=== PATIENT | female | born 1970 | race Caucasian/White ===

== ENCOUNTER → 2019-04-02 15:12 | Outpatient (CLI) | payer OTHER, SELFPAY ==
--- NOTE | 2019-04-02 15:14 | DI.MG.S_ITS ---
BILATERAL DIGITAL SCREENING MAMMOGRAM 3D/2D WITH CAD: 04/02/2019 CLINICAL: Routine screening. Family history of breast cancer. Comparison is made to exams dated: 07/07/2017 mammogram, 03/07/2016 mammogram, 06/24/2014 mammogram - [facility], and 05/31/2011 mammogram - outside. There are scattered fibroglandular elements in both breasts. Current study was also evaluated with a Computer Aided Detection (CAD) system. There is a mole marker on the right breast. No significant masses, calcifications, or other findings are seen in either breast. There has been no significant interval change. IMPRESSION: NEGATIVE There is no mammographic evidence of malignancy. A 1 year screening mammogram is recommended. This exam was interpreted at Station ID: [id number]. NOTE: For mammograms, a report in lay terms will be sent to the patient. Approximately 15% of breast malignancies will not be visualized mammographically. In the management of a palpable breast mass, a negative mammogram must not discourage biopsy of a clinically suspicious lesion. Electronically Signed By: Yrn lópez/johnson:04/02/2019 23:10:01 copy to: KIT LOPEZ letter sent: Normal Exam ACR BI-RADS Category 1: Negative 3341F
== END ==
PROVIDERS: PCP Family Medicine; Visit Provider Specialist
DX: Z12.31 Encounter for screening mammogram for malignant neoplasm of breast (principal); Z80.3 Family history of malignant neoplasm of breast
CPT/HCPCS: 77063; 77067

== ENCOUNTER → 2020-12-06 11:22 | Outpatient (CLI) | payer OTHER, SELFPAY ==
--- NOTE | 2020-12-06 | DI.MG.S_ITS ---
BILATERAL DIGITAL SCREENING MAMMOGRAM 3D/2D WITH CAD: 12/06/2020 CLINICAL: Routine screening. Family history of breast cancer. Comparison is made to exams dated: 04/02/2019 mammogram, 07/07/2017 mammogram, and 03/07/2016 mammogram - [facility]. There are scattered fibroglandular elements in both breasts. Current study was also evaluated with a Computer Aided Detection (CAD) system. There is an oval low density asymmetry with an indistinct margin in the left breast middle depth inferior region seen on the mediolateral oblique view only. No other significant masses, calcifications, or other findings are seen in either breast. IMPRESSION: INCOMPLETE: NEEDS ADDITIONAL IMAGING EVALUATION The oval low density asymmetry in the left breast is indeterminate. Mediolateral and spot compression views as well as additional views with possible ultrasound are recommended. This exam was interpreted at Station ID: [id number]. NOTE: For mammograms, a report in lay terms will be sent to the patient. Approximately 15% of breast malignancies will not be visualized mammographically. In the management of a palpable breast mass, a negative mammogram must not discourage biopsy of a clinically suspicious lesion. Electronically Signed By: Markos hall/johnson:12/06/2020 11:53:43 copy to: KIT LOPEZ letter sent: Additional Imaging Needed ACR BI-RADS Category 0: Incomplete 3340F
== END ==
PROVIDERS: PCP Family Medicine; Referring Provider Family Medicine; Visit Provider Family Medicine
DX: Z12.31 Encounter for screening mammogram for malignant neoplasm of breast (principal); Z80.3 Family history of malignant neoplasm of breast
CPT/HCPCS: 77063; 77067

== ENCOUNTER → 2021-01-08 12:49 | Outpatient (CLI) | payer OTHER, SELFPAY ==
--- NOTE | 2021-01-08 | DI.US.S_ITS ---
ULTRASOUND OF LEFT BREAST: 01/08/2021 CLINICAL: Patient returns today to evaluate a focal asymmetry in the left breast. Comparison is made to exams dated: 01/08/2021 mammogram, 12/06/2020 mammogram, 04/02/2019 mammogram, 07/07/2017 mammogram, 03/07/2016 mammogram, and 06/24/2014 mammogram - [facility]. Color flow and real-time ultrasound of the left breast were performed. Oneal scale images of the real-time examination were reviewed. No significant abnormalities were seen sonographically in the left breast. IMPRESSION: PROBABLY BENIGN There is no sonographic abnormality seen in the left breast to correspond with the area of mammography finding in the inferior aspect of the left breast which likely represent normal fibroglandular tissue. This is probably benign. A follow-up left mammogram with possible left ultrasound in 6 months is recommended to demonstrate stability. Findings and recommendations were conveyed to the patient during today's evaluation. This exam was interpreted at Station ID: [id number]. Electronically Signed By: Dandre lacey/:01/08/2021 15:21:48 copy to: KIT LOPEZ letter sent: Followup Recommended Ultrasound BI-RADS: 3 Probably benign
--- NOTE | 2021-01-08 | DI.MG.S_ITS ---
UNILATERAL LEFT DIGITAL DIAGNOSTIC MAMMOGRAM 3D/2D WITH ADDITIONAL VIEWS: 01/08/2021 CLINICAL: Additional evaluation requested from prior study. Comparison is made to exams dated: 12/06/2020 mammogram, 04/02/2019 mammogram, and 07/07/2017 mammogram - [facility]. There are scattered fibroglandular elements in left breast. Redemonstration of previously described oval low density asymmetry in the left breast middle depth inferior region seen on the mediolateral oblique view only. This is less prominent and decreased in size. No other significant masses or calcifications are seen in the breast. IMPRESSION: INCOMPLETE: NEEDS ADDITIONAL IMAGING EVALUATION The oval low density asymmetry in the left breast resembles fibroglandular tissue and is indeterminate. An ultrasound is recommended for further evaluation and is scheduled to immediately follow this examination. This exam was interpreted at Station ID: [id number]. NOTE: For mammograms, a report in lay terms will be sent to the patient. Approximately 15% of breast malignancies will not be visualized mammographically. In the management of a palpable breast mass, a negative mammogram must not discourage biopsy of a clinically suspicious lesion. Electronically Signed By: Dandre Tate M.D. aty/:01/08/2021 13:58:54 copy to: KIT FLAHERTY BI-RADS Category 0: Incomplete 3340F
== END ==
PROVIDERS: PCP Family Medicine; Referring Provider Family Medicine; Visit Provider Family Medicine
DX: R92.8 Other abnormal and inconclusive findings on diagnostic imaging of breast (principal); N64.89 Other specified disorders of breast
CPT/HCPCS: 76642; 77065; G0279

== ENCOUNTER → 2021-09-14 09:09 | Outpatient (CLI) | payer OTHER, SELFPAY ==
--- NOTE | 2021-09-14 | DI.MG.S_ITS ---
UNILATERAL LEFT DIGITAL DIAGNOSTIC MAMMOGRAM 3D/2D SHORT-TERM FOLLOW-UP: 09/14/2021 CLINICAL: Short term follow up for the left breast. Comparison is made to exams dated: 01/08/2021 mammogram, 12/06/2020 mammogram, and 04/02/2019 mammogram - [facility]. There are scattered fibroglandular elements in left breast. The oval low density asymmetry in the left breast middle depth inferior region seen on the mediolateral oblique view only is no longer seen and is consistent with fibroglandular tissue. This is not seen in additional views. No other significant masses or calcifications are seen in the breast. IMPRESSION: BENIGN There is no mammographic evidence of malignancy. A 1 year screening mammogram is recommended. This exam was interpreted at Station ID: [id number]. NOTE: For mammograms, a report in lay terms will be sent to the patient. Approximately 15% of breast malignancies will not be visualized mammographically. In the management of a palpable breast mass, a negative mammogram must not discourage biopsy of a clinically suspicious lesion. Electronically Signed By: Eligio Hall acr/:09/14/2021 09:51:53 copy to: KIT LOPEZ letter sent: Normal Exam ACR BI-RADS Category 2: Benign Finding(s) 3342F
== END ==
PROVIDERS: PCP Family Medicine; Referring Provider Family Medicine; Visit Provider Family Medicine
DX: R92.8 Other abnormal and inconclusive findings on diagnostic imaging of breast (principal)
CPT/HCPCS: 77065; G0279

== ENCOUNTER → 2022-03-02 10:34 | Outpatient (CLI) | payer OTHER, SELFPAY ==
[2022-03-02 12:38] LABS: Alanine Aminotransferase 22 IU/L (<35); Albumin 4.4 g/dL (3.5-5.0); Albumin Globulin Ratio 1.4 (1.0-2.8); Alkaline Phosphatase 66 U/L (38-126); Aspartate Aminotransferase 30 IU/L (14-36); BUN Creatinine Ratio 23.3 (6-22); Bilirubin Total 0.5 mg/dL (0.2-1.3); Blood Urea Nitrogen 17 mg/dL (7-17); Calcium 9.3 mg/dL (8.4-10.2); Carbon Dioxide 28 mmol/L (22-32); Chloride 101 mmol/L (98-107); Estimated Glomerular Filt Rate > 60 mL/min (>60); Globulin 3.1 g/dL (1.7-4.1); Glucose 94 mg/dL (70-100); HEMOLYSIS < 15 (0-50); Potassium 4.7 mmol/L (3.4-5.1); Sodium 138 mmol/L (137-145); Total Protein 7.5 g/dL (6.3-8.2)
[2022-03-02 13:05] LABS: TSH w/ Reflex to FT4 1.31 uIU/mL (0.47-4.68)
== END ==
PROVIDERS: PCP Nurse Practitioner Family; Referring Provider Nurse Practitioner Family; Visit Provider Nurse Practitioner Family
DX: I10 Essential (primary) hypertension (principal); Z51.81 Encounter for therapeutic drug level monitoring
CPT/HCPCS: 36415; 80053; 84443

== ENCOUNTER 2022-12-30 07:34 | Emergency (ER) | payer OTHER, SELFPAY ==
[2022-12-30 07:37] VITALS: BP 173/85; PULSE 65; RESP 16; TEMP 36.4; O2SAT 100; BMI 29.2
--- NOTE | 2022-12-30 07:51 | ED.ABDPAIN ---
HPI - Abdominal Pain General Chief Complaint: Abdominal Pain Stated Complaint: abd trauma gardening accident T-1 Time Seen by Provider: 12/30/22 07:38 History of Present Illness HPI narrative: Patient is a 52-year-old healthy female who presents today with an abdominal contusion. She reports that yesterday while working in her garden she was trying to push a rain gauge into a very hard ground it broken half and got her in the abdomen. There is no laceration there was never any external bleeding. But she is a very large bruise and pain today. She is not dizzy she is not lightheaded. Bowel movements are normal. She is not had any nausea or vomiting. There is no other injury. She is not on antiplatelet or anticoagulation medication. Related Data Home Medications Medication Instructions Recorded Confirmed acyclovir 400 mg tablet 400 mg PO TID PRN 12/06/20 12/06/20 Previous Rx's Medication Instructions Recorded levothyroxine 75 mcg tablet 0.075 mg PO QAM #90 tabs 10/22/16 (Synthroid) naproxen 500 mg tablet (Naprosyn) 500 mg PO BIDCC #30 tabs 05/15/17 Allergies Allergy/AdvReac Type Severity Reaction Status Date / Time No Known Drug Allergies Allergy Verified 12/06/20 14:51 Review of Systems Review of Systems ROS Unobtainable: All systems reviewed & are unremarkable except as noted in HPI and below Patient History Surgical History Status post delivery Status post delivery Status post myomectomy Family History Brother Age: 50 Mental health problem Grandfather Heart disease Hypertension Grandmother Heart disease Grandfather Cancer Grandmother Mental health problem Social History Smoking Status: Former smoker Smoking Status: Former smoker Exam Initial Vital Signs Initial Vital Signs: Vital Signs Temperature 97.5 F L 12/30/22 07:37 Pulse Rate 65 12/30/22 07:37 Respiratory Rate 16 12/30/22 07:37 Blood Pressure 173/85 H 12/30/22 07:37 Pulse Oximetry 100 12/30/22 07:37 Oxygen Delivery Method Room Air 12/30/22 07:37 GENERAL: Alert pleasant well-appearing 52-year-old and in no acute distress. HEENT: Head atraumatic,EOMI, pupils reactive, face symmetric, moist mucous membranes CARDIOVASCULAR: Regular rate and rhythm without murmurs, rubs or gallops. RESPIRATORY: Breath sounds equal bilaterally, no wheezes rales or rhonchi. ABDOMEN: Soft, nontender. Normoactive bowel sounds all 4 quadrants. No guarding or rebound. No tenderness in right upper left upper quadrant EXTREMITIES: Normal range of motion, no clubbing or edema. Neurovascularly intact NEUROLOGICAL: Alert and oriented x4. SKIN: Right lower quadrant is a large palpable hematoma no significant fluctuation. Slightly tender to touch Procedures FAST Exam FAST Exam 1: Fluid in Morison's pouch: No Fluid in Splenorenal Junction: No Fluid around bladder, Transverse view: No Fluid around bladder, Sagittal view: No Study normal for this patient: Yes Course Vital Signs Vital signs: Vital Signs - 8 hr 12/30/22 07:37 Temperature 97.5 F L Pulse Rate 65 Respiratory Rate 16 Blood Pressure 173/85 H Pulse Oximetry 100 Oxygen Delivery Method Room Air MDM - Abdominal Pain MDM Narrative Medical decision making narrative: Patient healthy 52-year-old female presents with contusion on her lower abdomen. Vitals are stable she is ambulatory. Bedside fast exam does not show any intraperitoneal bleeding. Not on antiplatelet or anticoagulation medication. Consistent with subcutaneous contusion. Recommend supportive care only. Discharge Plan Departure Patient Disposition: Home Clinical Impression: Contusion Instructions: Contusion Activity Restrictions/Additional Instructions: *You have been diagnosed with contusion *What to do: Recommend ice to help with pain and swelling. The collar will actually get worse as the bruise comes up to the surface. *Continue to take medications as directed Tylenol or NSAIDs as directed for pain *Follow up with your primary care provider in 2-3 days or call [phone] *Return to ER if you should have dizziness lightheadedness increasing abdominal pain passing or any new, worsening or concerning symptoms Prescriptions: No Action levothyroxine [Synthroid] 75 MCG tablet 0.075 mg PO QAM Qty: 90 2RF naproxen [Naprosyn] 500 MG tablet 500 mg PO BIDCC Qty: 30 0RF acyclovir 400 mg tablet 400 mg PO TID PRN Referrals: Washburn,Eva, [employer] [Primary Care Provider] - Stand Alone Forms: Patient Portal/API
== END 2022-12-30 08:00 | disposition home or self-care (01) ==
PROVIDERS: Emergency Provider Emergency Medicine; PCP Nurse Practitioner Family
DX: S30.1XXA Contusion of abdominal wall, initial encounter (principal); W22.09XA Striking against other stationary object, initial encounter
CPT/HCPCS: 99281; 99282

== ENCOUNTER → 2024-01-06 07:58 | Outpatient (CLI) | payer OTHER, SELFPAY ==
--- NOTE | 2024-01-06 | DI.MG.S_ITS ---
BILATERAL DIGITAL SCREENING MAMMOGRAM 3D/2D WITH CAD: 01/06/2024 CLINICAL: Routine screening. Family history of breast cancer. Comparison is made to exams dated: 12/06/2020 mammogram, 04/02/2019 mammogram, and 07/07/2017 mammogram - [facility]. There are scattered areas of fibroglandular density in both breasts (category b / 25%-50% glandular tissue). Current study was also evaluated with a Computer Aided Detection (CAD) system. No significant masses, calcifications, or other findings are seen in either breast. There has been no significant interval change. IMPRESSION: NEGATIVE There is no mammographic evidence of malignancy. A 1 year screening mammogram is recommended. Based on the Tyrer Cuzick model (a risk assessment model) the patient's lifetime risk is 14.0% and her 10 year risk is 4.1%. According to the ACR, ACS, and NCCN guidelines, an annual breast MRI exam along with mammogram is recommended if the patient's lifetime risk is 20% or greater. This exam was interpreted at Station ID: [id number]. NOTE: For mammograms, a report in lay terms will be sent to the patient. Approximately 15% of breast malignancies will not be visualized mammographically. In the management of a palpable breast mass, a negative mammogram must not discourage biopsy of a clinically suspicious lesion. Electronically Signed By: Mitzy santiago/johnsno:01/06/2024 12:12:45 copy to: KIT LOPEZ letter sent: Normal Exam ACR BI-RADS Category 1: Negative 3341F
== END ==
LOC: MAMMO 07:58
PROVIDERS: PCP Family Medicine; Referring Provider Family Medicine; Visit Provider Family Medicine
DX: Z12.31 Encounter for screening mammogram for malignant neoplasm of breast (principal); Z80.3 Family history of malignant neoplasm of breast; R92.323 Mammographic fibroglandular density, bilateral breasts
CPT/HCPCS: 77063; 77067

== ENCOUNTER 2024-03-23 06:23 | Day surgery (SDC) | payer OTHER, SELFPAY ==
[2024-03-23 06:53] VITALS: BP 112/72; PULSE 72; RESP 16; TEMP 36.4; O2SAT 100
--- NOTE | 2024-03-23 07:29 | PM.HP.1 ---
History of Present Illness History of Present Illness Date Patient Seen: 03/23/24 Time Patient Seen: 07:29 Chief complaint: Colonoscopy Narrative: Colon cancer screening. has bleeding hemorrhoids that prolapse. No family history for colon cancer. [facility] Surgical History Status post delivery Status post delivery Status post myomectomy Family History Brother Age: 52 Mental health problem Grandfather Heart disease Hypertension Grandmother Heart disease Grandfather Cancer Grandmother Mental health problem Social History Smoking Status: Former smoker Meds Home Medications and Allergies Home Medications Medication Instructions Recorded Confirmed Type levothyroxine 75 mcg tablet 0.075 mg PO QAM #90 tabs 10/22/16 03/23/24 Rx (Synthroid) naproxen 500 mg tablet (Naprosyn) 500 mg PO BIDCC #30 tabs 05/15/17 03/23/24 Rx acyclovir 400 mg tablet 400 mg PO TID PRN herpes 12/06/20 03/23/24 History sodium,potassium,mag sulfates 17.5 See Rx Instructions PO .COMPLEX 11/11/23 Rx gram-3.13 gram-1.6 gram oral soln #354 mL (Suprep Bowel Prep Kit) Allergies Allergy/AdvReac Type Severity Reaction Status Date / Time iodine AdvReac Hives Verified 03/23/24 06:42 Review of Systems Review of Systems ROS: Yes All systems reviewed with the patient and are negative except as otherwise documented Exam Vital Signs (past 8 hours): - 03/23/24 06:53 Temperature 97.6 F Pulse Rate 72 Respiratory Rate 16 Blood Pressure 112/72 Pulse Oximetry 100 Oxygen Delivery Method Room Air Oxygen Delivery Method Room Air Const General: cooperative, healthy appearing and comfortable Nutritional Appearance: average body habitus HENSD Head: normocephalic and atraumatic Eyes General: appearance normal, both eyes and all related structures Neck Neck: full ROM and trachea midline Chest Chest: normal inspection of the chest Resp Effort & Inspection: normal respiratory effort and able to speak in complete sentences Cardio Rate: regular rate Rhythm: regular rhythm GI Palpation: soft Skin General: turgor normal and No atrophy Neuro General: patient alert, patient awake and patient oriented x3 Psych Appearance: grossly normal Mental Status: mental status grossly normal Affect: normal affect Judgment: judgment good Assessment & Plan Assessment & Plan narrative: colon cancer screening with anesthesia and colonoscopy Time-Based Coding :: [TOTAL MINUTES] spent with patient and on the chart (including review of chart, obtaining history, exam, reviewing outside data, placing orders, documenting exam and treatment plan, and counseling patient) on [DATE].
--- NOTE | 2024-03-23 07:47 | PM.OP.COLON ---
Operative Date/Time/Diagnoses Date of procedure: 03/23/24 Time of procedure: 07:47 Pre-op diagnosis: Colon cancer screening and hemorrhoids Post-op diagnosis: same Procedure & Clinicians Study performed: Colonoscopy with anesthesia Same procedure as scheduled: Yes Indications: Colon cancer screening and hemorrhoids Surgeon: Mayi Pham Procedure Notes Procedure in detail: Preop diagnosis: Colon cancer screening and hemorrhoids Postop diagnosis: Same Operative procedure: Colonoscopy with anesthesia Surgeon: Liz Pham MD Findings: Grade 2, 3 internal hemorrhoids. No polyps, no diverticulosis Procedure: Patient placed in a lateral position. Rectal exam performed showing normal tone no masses. She does have external and internal hemorrhoids. Scope was inserted into the rectum and advanced to ileocecal valve with minimal difficulty. Insufflation extraction of the scope and the above findings. Retroflex was included in the rectum. Impression: No diverticulosis, no polyps. She does have grade 2 and 3 internal hemorrhoids and reports prolapse during defecation. May benefit from PPH proctopexy Plan: Repeat colonoscopy in 10 years unless otherwise change in clinical condition. Findings: divertiulosis and internal hemorrhoids Specimen(s): none sent Complications: none Post-procedure Recommendations: Colonoscopy in 10 years Follow up: as needed Disposition: PACU
[2024-03-23 07:51] VITALS: BP 75/51; PULSE 68; RESP 17; TEMP 36.1; O2SAT 94
[2024-03-23 07:53] VITALS: BP 88/57; PULSE 64
[2024-03-23 07:56] VITALS: BP 84/57; PULSE 61; RESP 15; O2SAT 95
[2024-03-23 08:01] VITALS: BP 97/67; PULSE 72; RESP 17; TEMP 36.7; O2SAT 95
== END 2024-03-23 08:20 | disposition home or self-care (01) ==
PROVIDERS: Surgery; PCP Family Medicine; Referring Provider Surgery; Visit Provider Surgery
PROC: 0DJD8ZZ Inspection of Lower Intestinal Tract, Via Natural or Artificial Opening Endoscopic (ICD-10-PCS; CPT 45378; principal; 2024-03-23 07:45)
DX: Z12.11 Encounter for screening for malignant neoplasm of colon (principal); K64.2 Third degree hemorrhoids
CPT/HCPCS: 45378; J2704